=== PATIENT | female | born 1960 | race Caucasian/White ===

== ENCOUNTER → 2018-02-21 | Emergency (ER) | payer SELFPAY ==
[~2018-02-21] VITALS: Ht 175.3 cm; Wt 90.7 kg
== END | disposition home or self-care (01) ==
LOC: FSED 21:48
DX: R07.89 Other chest pain (principal); S46.812A Strain of other muscles, fascia and tendons at shoulder and upper arm level, left arm, initial encounter
CPT/HCPCS: 99283